=== PATIENT | female | born 1980 | race Caucasian/White ===

== ENCOUNTER 2021-05-07 10:07 | Outpatient (REF) | payer OTHER, SELFPAY ==
[2021-05-07 11:32] LABS: Hematocrit 45.1 % (37.0-47.0); Hemoglobin 15.5 g/dl (12.0-16.0); Mean Corpuscular HGB Conc 34.4 g/dl (31.0-35.0); Mean Platelet Volume 10.7 fL (9.4-12.3); Platelet Count 308 X10*3/uL (160-400); White Blood Count 7.8 X10*3/uL (4.8-10.8)
[2021-05-07 11:33] LABS: Appearance Urine HAZY; Color Urine YELLOW; Glucose Urine UA NEG (NEG); Leukocyte Esterase Urine NEG (NEG); Nitrite Urine NEG (NEG); Specific Gravity - Urine 1.015 (1.005-1.025); Urine Blood 3+ (NEG); Urine Ketones 15 MG/DL (NEG); Urine Protein NEG (NEG-TRACE)
[2021-05-07 11:59] LABS: Bacteria Urine TRACE /LPF; Squamous Epithelial Cell Urine 2+ /LPF; WBC Urine 0-2 /HPF (0-4)
[2021-05-07 12:13] LABS: TSH reflex Free T4 3.86 uIU/mL (0.32-4.0)
[2021-05-07 12:18] LABS: Alanine Aminotransferase 24 U/L (0-31); Albumin Level 4.6 g/dL (3.5-5.0); Alkaline Phosphatase 58 U/L (39-117); Anion Gap 15 (12-20); Aspartate Amino Transferase 24 U/L (5-31); Bilirubin Total 1.1 mg/dL (0.0-1.0); Blood Urea Nitrogen 10 mg/dL (9-16); Calcium 9.7 mg/dL (8.4-10.2); Carbon Dioxide 21 mmol/L (22-29); Chloride 105 mmol/L (96-108); Cholesterol 238 mg/dL; Estimated Glomerular Filt Rate > 60; Glucose Fasting 94 mg/dL (60-99); HDL Cholesterol 45 mg/dL; LDL Cholesterol Calculated 162 mg/dl; Potassium 4.5 mmol/L (3.3-5.1); Sodium 136 mmol/L (135-145); Total Protein 7.3 g/dL (6.5-8.0); Triglycerides 155 mg/dL
== END 2021-05-07 10:08 | disposition home or self-care (01) ==
LOC: HO.HMGCLDS 10:07
PROVIDERS: PCP Internal Medicine; Visit Provider Internal Medicine
DX: Z00.00 Encounter for general adult medical examination without abnormal findings (principal); F41.9 Anxiety disorder, unspecified; J45.909 Unspecified asthma, uncomplicated
CPT/HCPCS: 36415; 80053; 80061; 81001; 84443; 85027

== ENCOUNTER 2021-11-25 10:28 | Outpatient (REF) | payer OTHER, SELFPAY ==
[2021-11-25 12:03] LABS: Cholesterol 284 mg/dL; HDL Cholesterol 55 mg/dL; LDL Cholesterol Calculated 202 mg/dl; Triglycerides 137 mg/dL
== END 2021-11-25 10:29 | disposition home or self-care (01) ==
LOC: HO.HMGCLDS 10:28
PROVIDERS: PCP Internal Medicine; Visit Provider Internal Medicine
DX: E78.5 Hyperlipidemia, unspecified (principal); J45.909 Unspecified asthma, uncomplicated
CPT/HCPCS: 36415; 80061

== ENCOUNTER 2022-03-26 11:17 | Outpatient (REF) | payer OTHER, SELFPAY ==
[2022-03-26 14:50] LABS: Alanine Aminotransferase 48 U/L (0-31); Albumin Level 4.7 g/dL (3.5-5.0); Alkaline Phosphatase 71 U/L (39-117); Anion Gap 15 (12-20); Aspartate Amino Transferase 44 U/L (5-31); Bilirubin Total 0.6 mg/dL (0.0-1.0); Blood Urea Nitrogen 10 mg/dL (9-16); Carbon Dioxide 25 mmol/L (22-29); Chloride 105 mmol/L (96-108); Cholesterol 176 mg/dL; Estimated Glomerular Filt Rate > 60; Glucose Fasting 86 mg/dL (60-99); HDL Cholesterol 55 mg/dL; LDL Cholesterol Calculated 98 mg/dl; Potassium 4.6 mmol/L (3.3-5.1); Sodium 140 mmol/L (135-145); Triglycerides 117 mg/dL
== END 2022-03-26 11:18 | disposition home or self-care (01) ==
LOC: HO.HMGCLDS 11:17
PROVIDERS: PCP Internal Medicine; Visit Provider Internal Medicine
DX: E78.5 Hyperlipidemia, unspecified (principal); I10 Essential (primary) hypertension
CPT/HCPCS: 36415; 80053; 80061

== ENCOUNTER 2022-11-10 10:54 | Outpatient (AMB) | payer OTHER, SELFPAY ==
--- NOTE | 2022-11-10 11:12 | A.OFFPC_ITS ---
Vital Signs 11/10/22 11:13 Height 5 ft Weight 160 lb BMI 31.2 BP 124/82 Blood Pressure Location Lt brachial Position Sitting Pulse 78 Pulse Source Pulse Oximeter Pulse Oximetry (%) 96 Oxygen Delivery Method Room Air Intake Visit Reasons: 6 month follow up Intake Note: Pt is here today for 6 months follow up visit. Allergies apple [Apple] Allergy (Unknown, Verified 11/10/22 11:14) swelling of the tounge methyldopa Allergy (Unknown, Verified 11/10/22 11:14) rash Medication List - Last Reconciled 11/10/22 by Hilda Contreras MD albuterol sulfate 90 mcg/actuation 2 puffs PO Q6H PRN alprazolam 0.25 mg PO DAILY atorvastatin 20 mg PO DAILY fluticasone propionate 220 mcg/actuation (Flovent HFA) 2 puffs inhalation BID loratadine 10 mg PO DAILY montelukast (Singulair) 10 mg PO DAILY nifedipine ER 90 mg PO DAILY trazodone 50 mg PO BEDTIME PRN triamcinolone acetonide 0.1% 1 appl topical BID Tobacco use date assessed: 11/10/22 Dental Screening Dental Screen Date: 11/10/22 Did you have a dental visit in the last 12 months?: Yes Did you have a dental problem in the last 6 months where you did not have access to dental care?: No Was dental information given to patient?: Patient has dentist HPI 6 month follow up HPI Details Pt presents for HTN, hyperlipid, stable on meds. PFSH Medical History Alopecia areata Annual physical exam Anxiety Asthma Dysuria Essential hypertension Hyperlipidemia Migraine Otitis media, unspecified, bilateral Ovarian cyst, right Renal cyst, right Smoker unmotivated to quit Surgical History History of section Family History Father HTN (hypertension) Cardiac disease Mother HTN (hypertension) Brother No problems noted. Son No problems noted. Social History Housing: House Alcohol intake: current Patient Tobacco Use Status: Current someday Tobacco user (2,5 months) Cigarettes Per Day: 4 e-Cigarette/Vaping Use: Never Used service: No Current occupational status: employed Cognitive needs: No Hearing needs: No Vision needs: No Questionnaire Thrive Questionnaire Date Thrive assessed: 05/12/22 JAYSON-7 AMB Questionnaire JAYSON-7 Date JAYSON - 7 assessed: 05/12/22 Source: Developed by Drs. Donaldo Mclean, Minda Veloz, Michael Ramesh and colleagues, with an educational waldemar from [employer]. Review of Systems Const All systems reviewed & are unremarkable except as noted in HPI and below Reports no additional complaints Eyes Reports no additional complaints ENT Reports no additional complaints Card Reports no additional complaints Resp Reports no additional complaints GI Reports no additional complaints Physical exam (Primary Care) Vital Signs: Last Vital Signs Pulse 78 11/10/22 11:13 BP 124/82 11/10/22 11:13 Pulse Ox 96 11/10/22 11:13 Oxygen Delivery Method Room Air 11/10/22 11:13 BMI result Body Mass Index 31.2 Tobacco/Smoking Status: Tobacco use Status Tobacco use date assessed 11/10/22 11/10/22 11:18 Patient Tobacco Use Status Current someday Tobacco (2,5 11/10/22 11:18 months) e-Cigarette/Vaping Use Never Used 11/10/22 11:18 Thrive Assessment: Date of Thrive Assessment Date Thrive assessed 05/12/22 11/10/22 11:18 Const General: no acute distress HENMT Head: Yes normal to inspection Ears: hearing grossly normal bilaterally Mouth: Normal oral and palatal mucosa present Throat: Yes posterior oropharynx normal Eyes General: appearance normal, both eyes and all related structures Neck Neck: Yes no lymphadenopathy and Yes supple Resp Effort & Inspection: normal respiratory effort Auscultation: clear to auscultation bilaterally Cardio Rhythm: regular rhythm Heart sounds: S1 normal heart sound present and S2 normal heart sound present GI Inspection: Yes normal to inspection Palpation (GI): Soft to palpation Percussion: Yes normal to percussion Auscultation: normal bowel sounds Assessment and Plan Assessment & Plan (1) Anxiety: Comment: since childhood, multiple counselors in the past Code(s): F41.9 - Anxiety disorder, unspecified Plan: cont meds (2) Essential hypertension: Code(s): I10 - Essential (primary) hypertension Plan: cont meds (3) Hyperlipidemia: Code(s): E78.5 - Hyperlipidemia, unspecified Plan: Continue statin, a check lipid profile and comprehensive panel to monitor liver function. Patient was advised to cut down on alcohol intake (4) Asthma: Code(s): J45.909 - Unspecified asthma, uncomplicated Plan: Change Flovent to Advair 230/21 2 puffs twice a day because asthma is not well controlled on Flovent alone. Return for physical in March Orders: Orders Comprehensive Met. Panel Today F41.9 - Anxiety disorder, unspecified, I10 - Essential (primary) hypertension Lipid Panel Today F41.9 - Anxiety disorder, unspecified, I10 - Essential (primary) hypertension Medications: New fluticasone propion-salmeterol 230-21 mcg/actuation (Advair HFA) 2 puffs inhalation BID 36 grams 3RF Coding Level of Care Code Est Pt Level 4 (25738) Diagnoses Anxiety F41.9 Essential hypertension I10 Hyperlipidemia E78.5 Asthma J45.909
[2022-11-10 11:13] VITALS: BP 124/82; PULSE 78; O2SAT 96; BMI 31.2
== END 2022-11-10 11:47 | disposition home or self-care (01) ==
PROVIDERS: Visit Provider Internal Medicine
DX: F41.9 Anxiety disorder, unspecified (principal); I10 Essential (primary) hypertension; E78.5 Hyperlipidemia, unspecified; J45.909 Unspecified asthma, uncomplicated
CPT/HCPCS: 99214

== ENCOUNTER 2023-10-28 13:18 | Outpatient (REF) | payer OTHER, SELFPAY ==
[2023-10-28 16:00] LABS: MANUAL DIFF FLAG NO
[2023-10-28 16:20] LABS: Basophils Absolute Auto 0.1 X10*3/uL (0.0-0.2); Basophils Percent Auto 0.9 % (0-2); Eosinophils Absolute Auto 0.2 X10*3/uL (0.0-0.4); Eosinophils Percent Auto 2.9 % (0-4); Hemoglobin 15.7 g/dl (12.0-16.0); Imm Gran Abs Auto 0.03 X10*3/uL (0.00-0.03); Imm Gran Pct Auto 0.4 % (0.0-0.4); Lymphocytes Absolute Auto 1.3 X10*3/uL (1.2-4.9); Lymphocytes Percent Auto 16.8 % (20-40); Mean Corpuscular HGB Conc 34.9 g/dl (31.0-35.0); Mean Corpuscular Hemoglobin 34.1 pg (27.0-33.0); Mean Corpuscular Volume 97.8 fL (80.0-98.0); Mean Platelet Volume 10.7 fL (9.4-12.3); Monocytes Absolute Auto 0.5 X10*3/uL (0.1-1.2); Monocytes Percent Auto 6.8 % (2-11); Neutrophils Absolute Auto 5.8 x10*3/uL (2.0-8.3); Neutrophils Percent Auto 72.2 % (45-73); Platelet Count 239 X10*3/uL (160-400); Red Cell Distribution Width 12.3 % (11.0-16.0)
[2023-10-28 16:40] LABS: Alanine Aminotransferase 85 U/L (0-31); Albumin Level 4.5 g/dL (3.5-5.0); Alkaline Phosphatase 77 U/L (39-117); Anion Gap 13 (12-20); Aspartate Amino Transferase 69 U/L (5-31); Bilirubin Total 0.7 mg/dL (0.0-1.0); Blood Urea Nitrogen 6 mg/dL (9-16); Calcium 9.7 mg/dL (8.4-10.2); Carbon Dioxide 23 mmol/L (22-29); Chloride 107 mmol/L (96-108); Cholesterol 172 mg/dL (<200); Estimated Glomerular Filt Rate > 60; Glucose Fasting 111 mg/dL (60-99); HDL Cholesterol 57 mg/dL (>40); LDL Cholesterol Calculated 97 mg/dL (<100); Potassium 3.9 mmol/L (3.3-5.1); Sodium 139 mmol/L (135-145); Total Protein 7.2 g/dL (6.5-8.0); Triglycerides 90 mg/dL (<150)
[2023-10-28 16:57] LABS: TSH reflex Free T4 2.07 uIU/mL (0.32-4.0)
== END 2023-10-28 13:19 | disposition home or self-care (01) ==
LOC: HO.HMGCLDS 13:18
PROVIDERS: PCP Internal Medicine; Visit Provider Internal Medicine
DX: Z00.00 Encounter for general adult medical examination without abnormal findings (principal); I10 Essential (primary) hypertension; E78.5 Hyperlipidemia, unspecified
CPT/HCPCS: 36415; 80053; 80061; 84443; 85025

== ENCOUNTER 2023-10-29 13:42 | Outpatient (AMB) | payer OTHER, SELFPAY ==
[2023-10-29 13:48] VITALS: BP 110/82; PULSE 85; O2SAT 98; BMI 30.7
--- NOTE | 2023-10-29 13:48 | A.OFFPC_ITS ---
Vital Signs 10/29/23 13:48 Height 5 ft Weight 157 lb BMI 30.7 BP 110/82 Blood Pressure Location Rt brachial Position Sitting Pulse 85 Pulse Source Pulse Oximeter Pulse Oximetry (%) 98 Oxygen Delivery Method Room Air Intake Visit Reasons: PE Intake Note: Pt is here today for PE. Allergies apple [Apple] Allergy (Unknown, Verified 10/29/23 13:48) swelling of the tounge methyldopa Allergy (Unknown, Verified 10/29/23 13:48) rash Medication List - Last Reconciled 10/29/23 by Hilda Contreras MD albuterol sulfate 90 mcg/actuation 2 puffs PO Q6H PRN alprazolam 0.25 mg PO DAILY atorvastatin 20 mg PO DAILY fluticasone propion-salmeterol 230-21 mcg/actuation (Advair HFA) 2 puffs inhalation BID fluticasone propionate 220 mcg/actuation (Flovent HFA) 2 puffs inhalation BID loratadine 10 mg PO DAILY montelukast (Singulair) 10 mg PO DAILY nifedipine ER 90 mg PO DAILY trazodone 50 mg PO BEDTIME PRN triamcinolone acetonide 0.1% 1 appl topical BID Tobacco use date assessed: 10/29/23 Dental Screening Dental Screen Date: 10/29/23 Did you have a dental visit in the last 12 months?: Yes Did you have a dental problem in the last 6 months where you did not have access to dental care?: No Was dental information given to patient?: Patient has dentist HPI PE HPI Details pt presents for PE. PFSH Medical History Dysuria Hyperlipidemia Otitis media, unspecified, bilateral Annual physical exam Asthma Anxiety Ovarian cyst, right Renal cyst, right Alopecia areata Migraine Smoker unmotivated to quit Essential hypertension Surgical History History of section Family History Father HTN (hypertension) Cardiac disease Mother HTN (hypertension) Brother No problems noted. Son No problems noted. Social History Housing: House Alcohol intake: current Patient Tobacco Use Status: Current everyday Tobacco user (2,5 months) Cigarettes Per Day: 6 e-Cigarette/Vaping Use: Never Used service: No Current occupational status: employed Cognitive needs: No Hearing needs: No Vision needs: No Questionnaire PHQ-9 Over the last 2 weeks, how often have you been bothered by any of the following problems? 1. Little interest or pleasure in doing things: not at all 2. Feeling down, depressed, or hopeless: not at all 3. Trouble falling or staying asleep, or sleeping too much: nearly every day 4. Feeling tired or having little energy: several days 5. Poor appetite or overeating: not at all 6. Feeling bad about yourself - or that you are a failure or have let yourself or your family down: not at all 7. Trouble concentrating on things, such as reading the newspaper or watching television: not at all 8. Moving or speaking so slowly that other people could have noticed. Or the opposite - being so fidgety or restless that you have been moving around a lot more than usual: not at all 9. Thoughts that you would be better off or of hurting yourself in some way: not at all Total score: 4 Depression Screening Interpretation: Negative Depression Screening Done: Yes Source: Developed by Drs. Donaldo Mclean, Minda Veloz, Michael Ramesh and colleagues, with an educational waldemar from [employer]. Thrive Questionnaire Date Thrive assessed: 10/29/23 I am a: Patient What is your living situation today?: I have a steady place to live Within the past 12 months, did the food you bought not last and you didn't have the money to get more?: Never true Within the past 12 months, did you worry whether your food would run out before you got money to buy more?: Never true Do you have trouble paying for medicines?: No Do you have trouble getting transportation to medical appointments?: No Do you have trouble paying your heating and electricity bill?: No Do you have trouble taking care of your child, family member or friend?: No Do you have trouble with day-to-day activities such as bathing, preparing meals, shopping, managing finances, etc.?: No Are you currently unemployed and looking for a job?: No Are you interested in more education?: No Please select the resources that you would like help with: None THRIVE Score: 0 AUDIT C Alcohol Use Questionnaire (AUDIT-C) 1. How often do you have a drink containing alcohol?: 2-3 times a week 2. How many drinks containing alcohol do you have on a typical day when you are drinking?: 1 or 2 3. How often do you have six or more drinks on one occasion?: Never Total Score: 3 JAYSON-7 AMB Questionnaire JAYSON-7 Date JAYSON - 7 assessed: 10/29/23 Feeling nervous, anxious, or on edge: 0 = Not at all Not being able to stop or control worryin = Not at all Worrying too much about different things: 0 = Not at all Trouble relaxin = Not at all Being so restless that it is hard to sit still: 0 = Not at all Becoming easily annoyed or irritable: 0 = Not at all Feeling afraid as if something awful might happen: 0 = Not at all Total JAYSON-7 score (0-4 normal; 5-9 mild; 10-14 moderate; 15-21 severe): 0 Source: Developed by Drs. Donaldo Mclean, Minda Veloz, Michael Rmaesh and colleagues, with an educational waldemar from [employer]. Review of Systems Const All systems reviewed & are unremarkable except as noted in HPI and below Reports no additional complaints Eyes Reports no additional complaints ENT Reports no additional complaints Card Reports no additional complaints Resp Reports no additional complaints GI Reports no additional complaints Physical exam (Primary Care) Vital Signs: Last Vital Signs Pulse 85 10/29/23 13:48 BP 110/82 10/29/23 13:48 Pulse Ox 98 10/29/23 13:48 Oxygen Delivery Method Room Air 10/29/23 13:48 BMI result Body Mass Index 30.7 Tobacco/Smoking Status: Tobacco use Status Tobacco use date assessed 10/29/23 10/29/23 13:52 Patient Tobacco Use Status Current everyday Tobacco (2, 10/29/23 13:52 5 months) e-Cigarette/Vaping Use Never Used 10/29/23 13:52 PHQ-9: PHQ-9 Score PHQ-9: Total score 4 10/29/23 13:53 Depression Screening Interpretation: Negative Thrive Assessment: Date of Thrive Assessment Date Thrive assessed 10/29/23 10/29/23 13:53 Const General: no acute distress HENMT Head: Yes normal to inspection Ears: hearing grossly normal bilaterally Mouth: Normal oral and palatal mucosa present Throat: Yes posterior oropharynx normal Eyes General: appearance normal, both eyes and all related structures Neck Neck: Yes supple Resp Effort & Inspection: normal respiratory effort Auscultation: clear to auscultation bilaterally Cardio Rhythm: regular rhythm Heart sounds: S1 normal heart sound present and S2 normal heart sound present GI Inspection: Yes normal to inspection Palpation (GI): Soft to palpation Percussion: Yes normal to percussion Auscultation: normal bowel sounds Assessment and Plan Assessment & Plan (1) Essential hypertension: Code(s): I10 - Essential (primary) hypertension Plan: Continue nifedipine (2) Asthma: Code(s): J45.909 - Unspecified asthma, uncomplicated Plan: Continue Advair (3) Hyperlipidemia: Code(s): E78.5 - Hyperlipidemia, unspecified Plan: Continue atorvastatin (4) Annual physical exam: Code(s): Z00.00 - Encounter for general adult medical examination without abnormal findings Plan: Well-balanced diet regular exercise weight loss discussed with the patient. Return in 6 months with a fasting labs before Orders: Orders Comprehensive [place]. Panel Fast 6 Months E78.5 - Hyperlipidemia, unspecified, I10 - Essential (primary) hypertension, J45.909 - Unspecified asthma, uncomplicated Complete Blood Count Auto Diff 6 Months E78.5 - Hyperlipidemia, unspecified, I10 - Essential (primary) hypertension, J45.909 - Unspecified asthma, uncomplicated Lipid Panel 6 Months E78.5 - Hyperlipidemia, unspecified, I10 - Essential (primary) hypertension, J45.909 - Unspecified asthma, uncomplicated Medications: New clobetasol 0.05% 1 appl topical BEDTIME 2 weeks 50 mL 2RF Refilled atorvastatin 20 mg PO DAILY 90 tabs 3RF montelukast (Singulair) 10 mg PO DAILY 90 tabs 3RF loratadine 10 mg PO DAILY 90 tabs 3RF nifedipine ER 90 mg PO DAILY 90 tabs 3RF Discontinued fluticasone propionate 220 mcg/actuation (Flovent HFA) Discontinued Reason: Doctor's Order 2 puffs inhalation BID 36 grams 3RF Coding Level of Care Code Est Pt Prev Care 40-64y(69229) Diagnoses Essential hypertension I10 Asthma J45.909 Hyperlipidemia E78.5 Annual physical exam Z00.00
== END 2023-10-29 14:47 | disposition home or self-care (01) ==
PROVIDERS: PCP Internal Medicine; Visit Provider Internal Medicine
DX: I10 Essential (primary) hypertension (principal); J45.909 Unspecified asthma, uncomplicated; E78.5 Hyperlipidemia, unspecified; Z00.00 Encounter for general adult medical examination without abnormal findings
CPT/HCPCS: 99396

== ENCOUNTER 2024-05-11 11:19 | Outpatient (AMB) | payer OTHER, SELFPAY ==
--- NOTE | 2024-05-11 11:33 | MHC.OFFWIV ---
Intake Vital Signs 05/11/24 11:42 Weight 163 lb 2 oz BP 130/90 H Blood Pressure Location Rt brachial Position Sitting Pulse 99 Pulse Source Pulse Oximeter Temp 98.2 F Temp Source Oral Pulse Oximetry (%) 99 Oxygen Delivery Method Room Air Intake Visit Reasons: EP blocked ears Intake Note: Patient is here for bilat ear pain, congestion and cough that has been present for about 2 weeks. Patient Tobacco Use Status: Current everyday Tobacco user (2,5 months) Allergies apple [Apple] Allergy (Unknown, Verified 05/11/24 11:43) swelling of the tounge methyldopa Allergy (Unknown, Verified 05/11/24 11:43) rash Do you need a note to return to daycare/school/sports/work: No HPI HPI Comments History of Present Illness Details History - The patient is a 43-year-old female presenting with ear discomfort and difficulty hearing. - Approximately two weeks ago, she began experiencing symptoms including ear discomfort, a scratchy throat, and occasional cough. - Initial evaluations at an urgent care on the identified no infection, and the patient was treated with ibuprofen, though this offered no relief. - She has tried multiple treatments, including Sudafed and Flonase nasal spray, but discontinued based on the other urgent cares advice for potential rebound issues . she clarified she was not using Afrin. - A past episode of ear blockage occurred a few years ago with same issues. Physical Exam General: Cooperative, healthy appearing, comfortable and no acute distress Orientation/consciousness: Patient oriented x3 Limitations: No limitations Head: Normal to inspection Ears: Hearing impaired bilaterally, bilateral TM's with bulging, erythema and purulent effusions Nose: Normal external nose present, Normal nares present and No nasal discharge present Face and sinus: Normal facial exam Eyes: Appearance normal, both eyes and all related structures Neck: Normal visual inspection Respiratory: . Normal respiratory effort, able to speak in complete sentences, Actively coughing, no respiratory distress, not tachypneic, no tripod positioning and no use of accessory muscles Skin: No rashes or lesions noted Neuro: Patient oriented x3 Extremities: Normal to inspection and Yes no clubbing, cyanosis or edema [facility] Medical History Dysuria Hyperlipidemia Otitis media, unspecified, bilateral Annual physical exam Asthma Anxiety Ovarian cyst, right Renal cyst, right Alopecia areata Migraine Smoker unmotivated to quit Essential hypertension Surgical History History of section Family History Father HTN (hypertension) Cardiac disease Mother HTN (hypertension) Brother No problems noted. Son No problems noted. Social History Housing: House Alcohol intake: current Patient Tobacco Use Status: Current everyday Tobacco user (2,5 months) Cigarettes Per Day: 6 e-Cigarette/Vaping Use: Never Used service: No Current occupational status: employed Cognitive needs: No Hearing needs: No Vision needs: No Review of Systems Const All systems reviewed & are unremarkable except as noted in HPI and below Physical Exam Vital Signs: Last Vital Signs Temp 98.2 F 05/11/24 11:42 Pulse 99 05/11/24 11:42 BP 130/90 H 05/11/24 11:42 Pulse Ox 99 05/11/24 11:42 Oxygen Delivery Method Room Air 05/11/24 11:42 Assessment & Plan Assessment & Plan (1) Otitis media: Code(s): H66.90 - Otitis media, unspecified, unspecified ear Qualifiers: Otitis media type: suppurative Chronicity: acute Laterality: bilateral Recurrence: non-recurrent Spontaneous tympanic membrane rupture: without spontaneous rupture Qualified Code(s): H66.003 - Acute suppurative otitis media without spontaneous rupture of ear drum, bilateral Plan: For bilateral Acute Otitis Media, prescribe amoxicillin 875 mg BID for a potential duration of 10 days, assessing for symptom resolution within 7 days, if better she was instructed to stop after 7 days. Flonase is advised for its decongestant benefits, ensuring appropriate nasal administration as instructed. A note is provided to accommodate work obligations, considering current hearing difficulties. Patient was informed and verbally consented to the use of an ambient scribe for clinic note documentation during this visit Medications: New amoxicillin 875 mg PO Q12H 20 tabs 0RF Coding Level of Care Code Est Pt Level 3 (07057) Diagnoses Non-recurrent acute suppurative otitis media of both ears without spontaneous rupture of tympanic membranes H66.003 Otitis media type: suppurative Chronicity: acute Laterality: bilateral Recurrence: non-recurrent Spontaneous tympanic membrane rupture: without spontaneous rupture
[2024-05-11 11:42] VITALS: BP 130/90; PULSE 99; TEMP 36.8; O2SAT 99
== END 2024-05-11 12:25 | disposition home or self-care (01) ==
PROVIDERS: PCP Internal Medicine; Visit Provider Physician Assistant
DX: H66.003 Acute suppurative otitis media without spontaneous rupture of ear drum, bilateral (principal)

== ENCOUNTER → 2024-05-11 11:19 | Outpatient (BNVA) | payer OTHER, SELFPAY | PROVIDERS: PCP Internal Medicine; Visit Provider Physician Assistant | DX: H66.003 Acute suppurative otitis media without spontaneous rupture of ear drum, bilateral (principal) | CPT/HCPCS: 99212 ==

== ENCOUNTER 2025-02-16 12:12 | Outpatient (AMB) | payer OTHER, SELFPAY ==
[2025-02-16 12:28] VITALS: BP 138/88; PULSE 85; RESP 17; TEMP 36.8; O2SAT 98; BMI 31.8
--- NOTE | 2025-02-16 12:28 | MHC.PC.OV ---
Vital Signs 02/16/25 12:28 Height 5 ft Weight 163 lb BMI 31.8 BP 138/88 Blood Pressure Location Rt brachial Position Sitting Respiration 17 Pulse 85 Pulse Source Pulse Oximeter Temp 98.2 F Temp Source Oral Pulse Oximetry (%) 98 Oxygen Delivery Method Room Air Intake Visit Reasons: PE. Intake Note: Pt is here today for PE. Allergies apple (Apple) Allergy (Unknown, Verified 02/16/25 12:30) swelling of the tounge methyldopa Allergy (Unknown, Verified 02/16/25 12:30) rash buspirone (From BuSpar) Adverse Reaction (Intermediate, Verified 02/16/25 13:03) Anxiety sertraline Adverse Reaction (Intermediate, Verified 02/16/25 19:23) Lethargy Medication List - Last Reconciled 02/16/25 by Hilda Contreras MD albuterol sulfate 90 mcg/actuation 2 puffs PO Q6H PRN alprazolam 0.25 mg PO DAILY atorvastatin 20 mg PO DAILY clobetasol 0.05% 1 appl topical BEDTIME 2 weeks fluticasone propion-salmeterol 230-21 mcg/actuation (Advair HFA) 2 puffs inhalation BID loratadine 10 mg PO DAILY montelukast (Singulair) 10 mg PO DAILY nifedipine ER 90 mg PO DAILY trazodone 50 mg PO BEDTIME PRN triamcinolone acetonide 0.1% 1 appl topical BID Tobacco use date assessed: 02/16/25 Dental Screening Dental Screen Date: 02/16/25 Did you have a dental visit in the last 12 months?: Yes Did you have a dental problem in the last 6 months where you did not have access to dental care?: No Was dental information given to patient?: Patient has dentist HPI PE. HPI Details Patient presents for physical. She reports worsening anxiety for the last 2 months. She is established with a counselor. Patient denies depression suicide ideation but reports insomnia. Patient tried multiple medications in the past including buspirone and sertraline but she could not tolerate because of side effects. Chronic asthma is controlled on Advair and montelukast. [facility] Medical History Dysuria Hyperlipidemia Otitis media, unspecified, bilateral Annual physical exam Asthma Anxiety Ovarian cyst, right Renal cyst, right Alopecia areata Migraine Smoker unmotivated to quit Essential hypertension Surgical History History of section Family History Father HTN (hypertension) Cardiac disease Mother HTN (hypertension) Brother No problems noted. Son No problems noted. Social History Housing: House Alcohol intake: current Patient Tobacco Use Status: Current everyday Tobacco user (2,5 months) Cigarettes Per Day: 6 e-Cigarette/Vaping Use: Never Used service: No Current occupational status: employed Cognitive needs: No Hearing needs: No Vision needs: No Questionnaire PHQ-9 Over the last 2 weeks, how often have you been bothered by any of the following problems? 1. Little interest or pleasure in doing things: not at all 2. Feeling down, depressed, or hopeless: not at all 3. Trouble falling or staying asleep, or sleeping too much: nearly every day 4. Feeling tired or having little energy: several days 5. Poor appetite or overeating: not at all 6. Feeling bad about yourself - or that you are a failure or have let yourself or your family down: not at all 7. Trouble concentrating on things, such as reading the newspaper or watching television: not at all 8. Moving or speaking so slowly that other people could have noticed. Or the opposite - being so fidgety or restless that you have been moving around a lot more than usual: not at all 9. Thoughts that you would be better off or of hurting yourself in some way: not at all Total score: 4 Depression Screening Interpretation: Negative Depression Screening Done: Yes 01684 - PHQ-9 Billing: Yes Source: Developed by Drs. Donaldo Mclean, Minda Veloz, Michael Ramesh and colleagues, with an educational waldemar from [employer]. Thrive Questionnaire Date Thrive assessed: 02/16/25 I am a: Patient What is your living situation today?: I have a steady place to live Within the past 12 months, did the food you bought not last and you didn't have the money to get more?: Never true Within the past 12 months, did you worry whether your food would run out before you got money to buy more?: Never true Do you have trouble paying for medicines?: No Do you have trouble getting transportation to medical appointments?: No Do you have trouble paying your heating and electricity bill?: No Do you have trouble taking care of your child, family member or friend?: No Do you have trouble with day-to-day activities such as bathing, preparing meals, shopping, managing finances, etc.?: No Are you currently unemployed and looking for a job?: No Are you interested in more education?: No THRIVE Score: 0 AUDIT C Alcohol Use Questionnaire (AUDIT-C) 1. How often do you have a drink containing alcohol?: 2-3 times a week 2. How many drinks containing alcohol do you have on a typical day when you are drinking?: 3 or 4 3. How often do you have six or more drinks on one occasion?: Monthly Total Score: 6 JAYSON-7 AMB Questionnaire JAYSON-7 Date JAYSON - 7 assessed: 02/16/25 Feeling nervous, anxious, or on edge: 3 = Nearly every day Not being able to stop or control worryin = More than half the days Worrying too much about different things: 1 = Several days Trouble relaxin = Several days Being so restless that it is hard to sit still: 1 = Several days Becoming easily annoyed or irritable: 1 = Several days Feeling afraid as if something awful might happen: 1 = Several days Total JAYSON-7 score (0-4 normal; 5-9 mild; 10-14 moderate; 15-21 severe): 10 Source: Developed by Drs. Donaldo Mclean, Minda Veloz, Michael Ramesh and colleagues, with an educational waldemar from [employer]. JAYSON-7 Assessment Billing JAYSON-7 Assessment Tool: JAYSON-7 Assessment 71169 Review of Systems Const All systems reviewed & are unremarkable except as noted in HPI and below Eyes Reports no additional complaints ENT Reports no additional complaints Card Reports no additional complaints Resp Reports no additional complaints GI Reports no additional complaints Reports no additional complaints Physical exam (Primary Care) Vital Signs: Last Vital Signs Temp 98.2 F 02/16/25 12:28 Pulse 85 02/16/25 12:28 Resp 17 02/16/25 12:28 Pulse Ox 98 02/16/25 12:28 Oxygen Delivery Method Room Air 02/16/25 12:28 BMI result Body Mass Index 31.8 Tobacco/Smoking Status: Tobacco use Status Tobacco use date assessed 02/16/25 02/16/25 12:33 Patient Tobacco Use Status Current everyday Tobacco (2, 02/16/25 12:28 5 months) e-Cigarette/Vaping Use Never Used 02/16/25 12:28 PHQ-9: PHQ-9 Score PHQ-9: Total score 4 02/16/25 12:39 Depression Screening Interpretation: Negative Thrive Assessment: Date of Thrive Assessment Date Thrive assessed 02/16/25 02/16/25 12:39 Const General: no acute distress HENMT Head: Yes normal to inspection Face and sinus: Yes normal facial exam Throat: Yes posterior oropharynx normal Eyes General: appearance normal, both eyes and all related structures Neck Neck: Yes no lymphadenopathy and Yes supple Resp Effort & Inspection: normal respiratory effort Auscultation: clear to auscultation bilaterally Cardio Rhythm: regular rhythm Heart sounds: S1 normal heart sound present and S2 normal heart sound present GI Inspection: Yes normal to inspection Palpation (GI): Soft to palpation Percussion: Yes normal to percussion Auscultation: normal bowel sounds Coding Level of Care Code Est Pt Prev Care 40-64y(63088) Diagnoses Hyperlipidemia E78.5 Essential hypertension I10 Annual physical exam Z00.00 Anxiety F41.9 Additional Codes JAYSON-7 Assessment Billing - JAYSON-7 Assessment Tool: JAYSON-7 Assessment 63356 ([id number]) PHQ-9 - 29775 - PHQ-9 Billing: Yes ([id number]) Assessment & Plan Assessment & Plan (1) Hyperlipidemia: Code(s): E78.5 - Hyperlipidemia, unspecified Category: Medical Plan: Continue atorvastatin (2) Essential hypertension: Code(s): I10 - Essential (primary) hypertension Category: Medical Plan: Continue nifedipine and add valsartan 80 mg a day (3) Annual physical exam: Code(s): Z00.00 - Encounter for general adult medical examination without abnormal findings Category: Medical Plan: Well-balanced diet regular physical activity discussed with the patient she is up-to-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 Patient will follow-up in 1 month Orders: Orders Comprehensive [place]. Panel Fast Today E78.5 - Hyperlipidemia, unspecified, I10 - Essential (primary) hypertension, Z00.00 - Encounter for general adult medical examination without abnormal findings Complete Blood Count Auto Diff Today E78.5 - Hyperlipidemia, unspecified, I10 - Essential (primary) hypertension, Z00.00 - Encounter for general adult medical examination without abnormal findings Hemoglobin A1c Today E78.5 - Hyperlipidemia, unspecified, I10 - Essential (primary) hypertension, Z00.00 - Encounter for general adult medical examination without abnormal findings Lipid Panel Today E78.5 - Hyperlipidemia, unspecified, I10 - Essential (primary) hypertension, Z00.00 - Encounter for general adult medical examination without abnormal findings UA w Microscopic Today E78.5 - Hyperlipidemia, unspecified, I10 - Essential (primary) hypertension, Z00.00 - Encounter for general adult medical examination without abnormal findings TSH reflex Free T4 Today E78.5 - Hyperlipidemia, unspecified, I10 - Essential (primary) hypertension, Z00.00 - Encounter for general adult medical examination without abnormal findings MM tomosynthesis screening BI Today E78.5 - Hyperlipidemia, unspecified, I10 - Essential (primary) hypertension, Z00.00 - Encounter for general adult medical examination without abnormal findings, Z12.31 - Encounter for screening mammogram for malignant neoplasm of breast Medications: New valsartan 80 mg PO DAILY 90 tabs 0RF bupropion HCl SR (Wellbutrin SR) 1 tabl qd x 1week, then 1 tabl bid orally 2 times a day; 60 tabs 3RF Refilled trazodone 50 mg PO BEDTIME PRN 90 tabs 6RF sleep albuterol sulfate 90 mcg/actuation 2 puffs PO Q6H PRN 25.5 grams 1RF for wheezing J45.21 - Mild intermittent asthma with (acute) exacerbation albuterol sulfate 90 mcg/actuation 2 puffs PO Q6H PRN 25.5 grams 1RF for wheezing J45.21 - Mild intermittent asthma with (acute) exacerbation loratadine 10 mg PO DAILY 90 tabs 3RF
== END 2025-02-16 13:26 | disposition home or self-care (01) ==
PROVIDERS: PCP Internal Medicine; Visit Provider Internal Medicine
DX: Z00.00 Encounter for general adult medical examination without abnormal findings (principal); E78.5 Hyperlipidemia, unspecified; I10 Essential (primary) hypertension; F41.9 Anxiety disorder, unspecified

== ENCOUNTER → 2025-02-16 12:12 | Outpatient (BNVA) | payer OTHER, SELFPAY | PROVIDERS: PCP Internal Medicine; Visit Provider Internal Medicine | DX: Z13.31 Encounter for screening for depression (principal); Z13.39 Encounter for screening examination for other mental health and behavioral disorders | CPT/HCPCS: 96127 ==